=== PATIENT | female | born 1990 | race Caucasian/White ===

== ENCOUNTER 2021-08-10 15:17 | Outpatient (CLI) | payer MEDICAID, SELFPAY ==
[2021-08-10 15:35] VITALS: BP 122/86; PULSE 106; RESP 16; TEMP 36.9; O2SAT 99; BMI 25.3
[2021-08-10] MEDS: 0.9% Saline Lock 10 ML Syringe IV (15:40)
[2021-08-10 16:23] VITALS: BP 115/57; PULSE 86; RESP 16; TEMP 37.1; O2SAT 100
[2021-08-10 17:16] VITALS: BP 113/76; PULSE 79; RESP 16; TEMP 37; O2SAT 99
== END 2021-08-10 17:32 | disposition home or self-care (01) ==
LOC: MS3OUT 15:19 → MS3 15:20
PROVIDERS: Referring Provider Nurse Practitioner Adult Health; Visit Provider Nurse Practitioner Adult Health
DX: Z23 Encounter for immunization (principal); U07.1 COVID-19
CPT/HCPCS: J7050; M0245; Q0245; A4216

== ENCOUNTER 2022-09-17 11:17 | Emergency (ER) | payer OTHER, MEDICAID, SELFPAY ==
[2022-09-17 11:17] VITALS: BP 121/75; PULSE 96; RESP 18; TEMP 35.6; O2SAT 100; BMI 25.8
--- NOTE | 2022-09-17 11:27 | US_ITS ---
We are attempting to reach an attending provider to discuss findings. An addendum with communication details will be sent when the communication is complete. STUDY: FIRST TRIMESTER OBSTETRICAL ULTRASOUND REASON FOR EXAM: Female, 31 years old Left adnexal pain, 5 to 6 weeks gestation by dates- HCG 626 LMP: 08/13/2022 TECHNIQUE: Transvaginal TECHNICAL QUALITY: Adequate. PRIOR ULTRASOUND: None. FINDINGS: There is no demonstrated intrauterine gestational sac.. . The uterus measures 6.0 x 5.4 x 3.3. There is no demonstrated uterine fibroid. The cervix is closed. The uterus is retroflexed. The right ovary measures 2.3 x 2.0 x 2.5 cm. There is no right ovarian cyst. There is no visualized right adnexal mass or complex lesion. The left ovary measures 4.4 x 2.5 x 2.0 cm. There is no left ovarian cyst. There is no visualized left adnexal mass or complex lesion. There is a moderate amount of fluid in the cul de sac. US/Transvaginal w/Preg US IMPRESSION: Normal transvaginal pelvic ultrasound without an intrauterine gestational sac. Differential diagnosis includes an early intrauterine , early ectopic , or missed . Correlation with serial beta Hg measurements is recommended. Moderate amount of free fluid. Electronically Signed: Johan Orozco MD at 13:17 EST ,
--- NOTE | 2022-09-17 11:46 | EDS_ITS ---
HPI History of Present Illness Chief Complaint: Other, Pain/Inj Detail of Chief Complaint: Left inguinal/adnexal pain Informant: patient Onset/Context/Timing Onset: Days (Onset Sunday. Has gotten worse over the past 12 hours.) Context: Sudden Onset Timing: Continuous Quality: Pain Location: Left adnexa Current Severity: Mild Maximum Severity: Moderate Worsened by: Walking, movement Relieved by: Nothing Associated Symptoms Associated Symptoms: Nausea, increased urination and HPI narrative Narrative Narrative: Patient is a 31-year-old female who spoke with Dr. Maxine Duarte and recommended presentation to the emergency room to evaluate her left adnexal pain since she is approximately 6 weeks gestation. Patient states she has O+ blood. She does have history of HSV. She denies any other STI. She denies history of salpingitis. She denies history of endometriosis. She does have a remote history of ovarian cyst at the age of 19. She denies fever, chills night sweats. She denies orthostatic symptoms. Denies vomiting or diarrhea. She denies dysuria, hematuria or urgency. She denies vaginal bleeding or spotting. She denies vaginal discharge. She is scheduled to see vacuum tank tender first part of October. This is her first . Prior similar symptoms: No Recent Illness/Hospitalization: No PFSH PFSH Medical History (Updated 09/17/22 @ 14:[address] Lars Tarango MD) HSV (herpes simplex virus) anogenital infection Low iron Home Medications NK 08/10/21 [History Last Taken Unknown] Allergy/AdvReac Type Severity Reaction Status Date / Time hydrocodone Allergy Severe Itching Verified 09/17/22 11:20 pneumococcal vaccine AdvReac Severe Swelling Verified 09/17/22 11:20 [From Pneumovax-23] Family History no significant family his Surgical History no surgical history no surgical history Social History (Updated 09/17/22 @ 11:[address] Lars Tarango MD) household members: spouse Smoking Status: Never smoker substance use type: does not use ROS ROS ED Constitutional Constitutional ED: Denies chills, fever(s), subjective, sweats or weight loss Cardiovascular Cardiovascular: Reports other Details: Denies orthostatic pain or left trapezius pain ; Denies chest pain, palpitations or racing heartbeat Respiratory/Chest Respiratory/Chest: Denies cough, dyspnea or dyspnea on exertion Gastrointestinal Gastrointestinal: Reports abdominal pain and nausea; Denies diarrhea, melena or vomiting Genitourinary Genitourinary ED: Reports urinary frequency and other Details: Patient attributes the frequency due to the fact that she is increase fluid intake after she became aware that she was . ; Denies dysuria or hematuria Musculoskeletal Musculoskeletal: Denies arthralgias, back pain, myalgias or neck pain Neurologic Neurologic: Denies paresthesias or weakness Hematologic/Lymphatic Hematologic/Lymphatic: Reports systems reviewed and no addt'l complaints, except as documented EXAM Physical Exam Const Vital Signs: 09/17/22 11:17 09/17/22 11:38 Temperature 96.0 F L Temperature Source Temporal Pulse Rate 96 Respiratory Rate 18 Respiratory Effort Normal Respiratory Pattern Normal Blood Pressure 121/75 H Blood Pressure Mean 90 Pulse Ox 100 Oxygen Delivery Method Room Air Positive well nourished and well developed General Appearance ED: well developed and NAD; Negative for cyanotic, diaphoretic or pallor HEENT Reports moist mucous membranes HEENT Narrative: Head is atraumatic normocephalic. Ears normal. Nares patent. Eyes PERRL and EOMs intact bilaterally General Eye ED: Negative for pale conjunctiva or scleral icterus Neck supple and no JVD Resp normal respiratory effort and clear to auscultation bilaterally Cardio regular rate, regular rhythm, S1 normal heart sound, S2 normal heart sound and no murmurs GI normal to inspection, nondistended, normoactive bowel sounds and no masses; Negative for non-tender, non-distended or hepatosplenomegaly GI Narrative: There is slight tympany to percussion. Patient does have pain in the left inguinal area. There is no evidence of inguinal lymphadenopathy or hernia. Palpation: soft; Negative for guarding, splenomegaly, mass or rebound tenderness present Back/Spine no CVA tenderness Thoracic Spine / Upper Back: Negative for thoracic spinal tenderness Lumbar Spine / Lower Back: Negative for lumbar spinal tenderness Extremity normal to inspection Extremity Narrative: There is no asymmetry, swelling, discoloration, leg vein distention, palpable cords or tenderness along the distribution of the deep venous system. Neuro oriented x3, CN's II-XII intact bilaterally and no sensory deficits noted Sensorium / Orientation: alert Psych mental status grossly normal Skin no rashes or lesions noted, no wounds and skin turgor normal General Skin Exam: elasticity normal; Negative for jaundice or pallor MDM MDM MDM Narrative Medical decision making narrative: Frontal diagnosis would include ruptured ovarian cyst, doubt torsion. Need to evaluate for ectopic . Since patient is in her first trimester broad ligament pain is not likely. Rh was not obtained since patient does know her blood type, O+. Once the results of the ultrasound are known and the hCG quantitative level will contact Dr. Maxine Duarte who instructed patient to come in for evaluation. Lab Data Attestation: I reviewed the patient's lab results. Lab results narrative: Quantitative hCG is 626. There may not be evidence of an intrauterine on ultrasound. Labs: Laboratory Results - last 24 hr 09/17/22 11:30 HCG, Quant 626 H Radiography Diagnostic Testing: Clinical Impression(s) from Imaging Studies Obstetrics Ultrasound 09/17/22 11:27 IMPRESSION: Normal transvaginal pelvic ultrasound without an intrauterine gestational sac. Differential diagnosis includes an early intrauterine , early ectopic , or missed . Correlation with serial beta Hg measurements is recommended. Moderate amount of free fluid. Electronically Signed: Johan Orozco MD at 13:17 EST Reading Location ID and State: [employer] / [employer] Tel , Service support , ADDENDUM: 09/17/22 1328 IMPRESSION: Normal transvaginal pelvic ultrasound without an intrauterine gestational sac. Differential diagnosis includes an early intrauterine , early ectopic , or missed . Correlation with serial beta Hg measurements is recommended. Moderate amount of free fluid. N.B. : The above Results were Read Back by Johan Orozco MD to Sukhdeep Sousa MD, and understanding confirmed on 09/17/2022 13:21:33 (ET). Electronically Signed: Johan Orozco MD at 13:17 EST Reading Location ID and State: [id number] / [employer] Tel , Service support , CaseNo intrauterine was noted. Simple fluid on the cul-de-sac. Did not have consistency of blood. Suspect was not noted since she is early and quant is only 626. There is no evidence of cyst. Will discuss case with Dr. Maxine Duarte on-call. Will recommend hCG in 48 hours and follow-up since patient is hemodynamically stable and there is no visible evidence of ectopic . As discussed Dr. Maxine Duarte. She agrees with treatment plan. Patient's been made aware. Discharge Plan Triage Chief Complaint: Other, Pain/Inj ED Provider: Lars Tarango Dx/Rx/DC Orders Clinical Impression: Adnexal pain, First trimester , Free fluid in pelvis Instructions: ED Abdominal Pain, Early Prescriptions: No Action NK Primary Care Provider: Care Physician,No Primary Referrals: Maxine Mosquera, [Med Staff - Active Staff] - 3-5 Days Care Physician,No Primary [Primary Care Provider] - Activity Restrictions/Additional Instructions: Return if you are lightheaded, appear pale, left shoulder pain, severe pelvic pain or vaginal bleeding greater than 1 pad per hour x4 hours Disposition Disposition: Home, Self Care
[2022-09-17 12:01] LABS: hCG Titer Quant., Serum 626 mIU/mL (1-3)
[2022-09-17 14:37] VITALS: BP 109/69; PULSE 74; RESP 14; O2SAT 98
== END 2022-09-17 14:43 | disposition home or self-care (01) ==
PROVIDERS: Emergency Provider Emergency Medicine; Visit Provider Emergency Medicine
DX: O26.891 Other specified pregnancy related conditions, first trimester (principal); O99.891 Other specified diseases and conditions complicating pregnancy; R10.2 Pelvic and perineal pain; O98.511 Other viral diseases complicating pregnancy, first trimester; B00.9 Herpesviral infection, unspecified; R35.0 Frequency of micturition; Z3A.01 Less than 8 weeks gestation of pregnancy
CPT/HCPCS: 76817; 84702; 99283; A4216

== ENCOUNTER → 2022-09-19 | Outpatient (CLI) | payer OTHER, SELFPAY ==
[2022-09-19 12:47] LABS: hCG Titer Quant., Serum 1068 mIU/mL (1-3)
== END | disposition home or self-care (01) ==
PROVIDERS: Visit Provider Obstetrics & Gynecology
DX: Z34.90 Encounter for supervision of normal pregnancy, unspecified, unspecified trimester (principal)
CPT/HCPCS: 36415; 84702

== ENCOUNTER → 2022-09-27 | Outpatient (CLI) | payer OTHER, SELFPAY ==
--- NOTE | 2022-09-27 12:29 | US_ITS ---
STUDY: FIRST TRIMESTER OBSTETRICAL ULTRASOUND REASON FOR EXAM: Female, 31 years old well being LMP: 08/13/2022. TECHNIQUE: Transvaginal TECHNICAL QUALITY: Adequate. PRIOR ULTRASOUND: Comparison is made with prior examination dated 09/17/2022. FINDINGS: There is visualization of a single gestational sac in a normal intrauterine position. The mean sac diameter (MSD) measures 1.01 cm, indicating an estimated gestational age (EGA) of 5 weeks, 5 days. There is no demonstrated yolk sac. The placenta is non-visualized. There is visualization of a live embryo. The crown-rump length (CRL) measures 2.1 cm, indicating an estimated gestational age (EGA) of 6 weeks, 0 days. There is demonstrated cardiac activity with a heart rate of 105 bpm. The estimated gestation age (EGA) by LMP is 6 weeks, 3 days. The estimated date of delivery (JACKSON) by LMP is 05/20/2023. The estimated gestation age (EGA) by US is 5 weeks, 6 days. The estimated date of delivery (JACKSON) by US is 05/24/2023. The uterus measures 6.6 cm x 5.2 cm x 3.8 cm. There is no demonstrated uterine fibroid. The cervix is closed. The right ovary measures 2.5 cm x 2 cm x 2 cm. There is no right ovarian cyst. There is no visualized right adnexal mass or complex lesion. The left ovary measures 2.9 cm x 2.9 cm x 1.4 cm. There is no left ovarian cyst. There is no visualized left adnexal mass or complex lesion. There is no fluid in the cul de sac. US/Transvaginal w/Preg US IMPRESSION: Single live intrauterine gestation with a mean gestational age of 5 weeks and 6 days. Electronically Signed: Arnaldo Ndiaye MD at 14:33 EST ,
== END | disposition home or self-care (01) ==
LOC: OPUS 12:27
PROVIDERS: Referring Provider Obstetrics & Gynecology; Visit Provider Obstetrics & Gynecology
DX: Z34.91 Encounter for supervision of normal pregnancy, unspecified, first trimester (principal); Z3A.01 Less than 8 weeks gestation of pregnancy
CPT/HCPCS: 76817

== ENCOUNTER → 2022-10-16 | Outpatient (CLI) | payer OTHER, SELFPAY ==
[2022-10-16 10:35] LABS: Absolute Lymphocyte Count 1.64 X10^3/uL (0.83-4.51); Absolute Neutrophil Count 6.3 X10^3/uL (2.0-7.7); Basophil# 0.04 X10^3/uL; Basophil% 0.4 % (0-1); Eosinophil# 0.07 X10^3/uL; Eosinophils% 0.8 % (0-5); Hematocrit 35.8 % (37-47); Hemoglobin 11.5 g/dL (12.0-15.0); Lymphocyte # 1.64 X10^3/ul (0.83-4.51); Lymphocyte % 18.4 % (19-41); Mean Corp Hgb Conc 32.1 g/dL (32-36); Mean Corpuscular Hgb 20.1 pg (27.0-32.0); Mean Corpuscular Volume 62.6 fL (81-99); Mean Platelet Vol. 9.3 fl (6.2-12.0); Monocyte# 0.77 X10^3/uL; Monocyte% 8.6 % (0-10); NRBC Flagged by Analyzer 0 % (0-5); Neutrophil # 6.32 X10^3/uL (2.7-7.7); Platelet Count 278 K/mm3 (150-450); RBC Distribution Width CV 18.4 % (11.6-14.6); RBC Distribution Width SD 37.5 fl (35.1-43.9); Red Blood Count 5.72 M/mm3 (4.2-5.4); White Blood Count 8.9 K/mm3 (4.4-11.0)
[2022-10-16 11:50] LABS: HIV - WCH Non-Reactive (Nonreactive); Hepatitis B Surface Antigen Non-Reactive (Nonreactive); Hepatitis C Antibody Non-Reactive (Nonreactive); Rubella IgG Reactive (Nonreactive); Syphilis Antibodies Non-reactive
[2022-10-18 08:10] LABS: Chlamydia By Nucleic Acid AMP Negative (Negative)
[2022-10-20 18:59] LABS: Gonococcus By Nucleic Acid AMP Negative (Negative)
== END | disposition home or self-care (01) ==
PROVIDERS: Referring Provider Obstetrics & Gynecology; Visit Provider Obstetrics & Gynecology
DX: Z34.90 Encounter for supervision of normal pregnancy, unspecified, unspecified trimester (principal)
CPT/HCPCS: 36415; 85025; 86703; 86762; 86780; 86803; 86850; 86900; 86901; 87086; 87340; 87491; 87591

== ENCOUNTER → 2022-10-23 | Outpatient (CLI) | payer OTHER, SELFPAY ==
[2022-10-30 16:08] LABS: Protein S, Free 73 % (61-136)
[2022-10-30 21:02] LABS: Antithrombin 3 Function 99 % (75-135); Protein C, Functional 101 % (73-180); Protein S, Funtional 46 % (63-140); Protein S, Total 71 % (60-150)
== END | disposition home or self-care (01) ==
PROVIDERS: Visit Provider Obstetrics & Gynecology
DX: Z34.90 Encounter for supervision of normal pregnancy, unspecified, unspecified trimester (principal); D56.3 Thalassemia minor
CPT/HCPCS: 81240; 81241; 85300; 85303; 85305; 85306

== ENCOUNTER → 2022-10-30 | Outpatient (CLI) | payer OTHER, SELFPAY ==
[2022-10-30 12:21] LABS: Ferritin 57 ng/mL (8-252); Iron 104 ug/dL (50-170); Iron Binding Capacity,Total 360 ug/dL (250-450); PERCENT IRON SATURATION 28.9 % (15.0-55.0)
[2022-10-30 12:58] LABS: NATERA MAILED SPECIMEN
== END | disposition home or self-care (01) ==
LOC: PAVLAB 11:50
PROVIDERS: Referring Provider Obstetrics & Gynecology; Visit Provider Obstetrics & Gynecology
DX: O99.013 Anemia complicating pregnancy, third trimester (principal); Z31.430 Encounter of female for testing for genetic disease carrier status for procreative management
CPT/HCPCS: 36415; 82728; 83540; 83550

== ENCOUNTER → 2022-11-30 | Outpatient (CLI) | payer OTHER, SELFPAY | END | disposition home or self-care (01) | LOC: LABSPEC 13:04 | PROVIDERS: Referring Provider Registered Nurse; Visit Provider Registered Nurse | DX: R30.0 Dysuria (principal) | CPT/HCPCS: 87086 ==

== ENCOUNTER → 2022-12-06 | Outpatient (CLI) | payer OTHER, SELFPAY | END | disposition home or self-care (01) | LOC: LABSPEC 15:01 | PROVIDERS: Referring Provider Nurse Practitioner Women's Health; Visit Provider Nurse Practitioner Women's Health | DX: N89.8 Other specified noninflammatory disorders of vagina (principal) | CPT/HCPCS: 87070; 87205 ==

== ENCOUNTER → 2023-02-16 | Outpatient (CLI) | payer OTHER, SELFPAY | END | disposition home or self-care (01) | LOC: LABSPEC 09:57 | PROVIDERS: Referring Provider Advanced Practice Midwife; Visit Provider Advanced Practice Midwife | DX: O26.899 Other specified pregnancy related conditions, unspecified trimester (principal); N89.8 Other specified noninflammatory disorders of vagina; O23.40 Unspecified infection of urinary tract in pregnancy, unspecified trimester; Z3A.00 Weeks of gestation of pregnancy not specified; O99.891 Other specified diseases and conditions complicating pregnancy | CPT/HCPCS: 87070; 87086; 87205 ==

== ENCOUNTER → 2023-02-26 | Outpatient (CLI) | payer OTHER, SELFPAY ==
[2023-02-26 11:32] LABS: Absolute Lymphocyte Count 1.54 X10^3/uL (0.83-4.51); Absolute Neutrophil Count 9.9 X10^3/uL (2.0-7.7); Basophil# 0.05 X10^3/uL; Basophil% 0.4 % (0-1); Eosinophil# 0.11 X10^3/uL; Eosinophils% 0.9 % (0-5); Hematocrit 30.8 % (37-47); Hemoglobin 9.7 g/dL (12.0-15.0); Lymphocyte # 1.54 X10^3/ul (0.83-4.51); Lymphocyte % 12.2 % (19-41); Mean Corp Hgb Conc 31.5 g/dL (32-36); Mean Corpuscular Hgb 20.7 pg (27.0-32.0); Mean Corpuscular Volume 65.7 fL (81-99); Mean Platelet Vol. 9.7 fl (6.2-12.0); Monocyte# 0.76 X10^3/uL; NRBC Flagged by Analyzer 0 % (0-5); Neutrophil # 9.89 X10^3/uL (2.7-7.7); Neutrophil % 78.6 % (47-70); Platelet Count 267 K/mm3 (150-450); RBC Distribution Width CV 16.9 % (11.6-14.6); RBC Distribution Width SD 37.2 fl (35.1-43.9); Red Blood Count 4.69 M/mm3 (4.2-5.4); White Blood Count 12.6 K/mm3 (4.4-11.0)
[2023-02-26 11:40] LABS: Glucose Challenge Gest 1H 50g 84 mg/dL (70-140)
[2023-02-26 12:46] LABS: HIV - WCH Non-Reactive (Nonreactive); Syphilis Antibodies Non-reactive
[2023-02-28 15:17] LABS: Ferritin 12 ng/mL (8-252); Iron 58 ug/dL (50-170); Iron Binding Capacity,Total 479 ug/dL (250-450); PERCENT IRON SATURATION 12.1 % (15.0-55.0)
== END | disposition home or self-care (01) ==
LOC: PAVLAB 11:16
PROVIDERS: Registered Nurse; Referring Provider Advanced Practice Midwife; Visit Provider Advanced Practice Midwife
DX: O99.013 Anemia complicating pregnancy, third trimester (principal); Z3A.00 Weeks of gestation of pregnancy not specified
CPT/HCPCS: 36415; 82728; 82950; 83540; 83550; 85025; 86703; 86780

== ENCOUNTER 2023-03-23 18:12 | Outpatient (CLI) | payer OTHER, MEDICAID, SELFPAY ==
[2023-03-23 18:30] VITALS: BMI 29.2
[2023-03-23 18:33] VITALS: O2SAT 84
[2023-03-23 18:36] VITALS: BP 111/57; PULSE 98; TEMP 36.6
--- NOTE | 2023-03-23 22:38 | OB.TRI.HP_ITS ---
HPI - General General Date of Admission: 03/23/23 HPI Narrative DARCY ALEJO, is a 32 y/p @ 31 weeks 5 days who presents to labor and delivery with decreased movement Maternal Data Information JACKSON Calculator Estimated Delivery Date Method Current WG Current Estimate 05/20/23 LMP (Certain) 31w 6d Other Estimates 05/21/23 Ultrasound #1 31w 5d PFSH PFSH Medical History HSV (herpes simplex virus) anogenital infection Hx of abnormal cervical Pap smear Low iron Testing for genetic disease carrier status Home Medications PNV 153-FA 400 mcg-om3 35 mg-dha 25 mg-epa 5 mg-fish oil chew tablet 1 tab PO DAILY 10/09/22 [History Last Taken 03/23/23] valacyclovir 1 gram tablet (Valtrex) 1,000 mg PO DAILY PRN HSV 10/09/22 [History Last Taken Unknown] ferrous gluconate 236 mg (27 mg iron) tablet 236 mg PO DAILY #90 tabs 03/07/23 [Rx Last Taken 03/23/23] Allergy/AdvReac Type Severity Reaction Status Date / Time hydrocodone Allergy Severe Itching Verified 03/23/23 18:46 pneumococcal vaccine AdvReac Severe Swelling Verified 03/23/23 18:46 [From Pneumovax-] Family History Mother Thalassemia carrier Stillborn, normal 2 one at 6 months and one at 8 months Father Beta thalassemia minor Surgical History History of tonsillectomy Hx of LASIK [place] teeth extracted Social History adopted: No household members: spouse current occupational status: employed current occupation: [employer] pets and animals: Yes (not managing litterbox) pets and animals: cat(s), dog(s) and fish history of recent travel: Yes ([place]) out of state: Yes sexually active: Yes Smoking Status: Never smoker alcohol intake: current alcohol intake frequency: a few times a month details: Not while substance use type: does not use well-balanced diet: daily or most days caffeine: No eating out: 1-3 times/week during the past year weight has: remained stable what type of physical activity do you participate in: none gill/lutheran: Moravian seatbelt use: always do you feel safe at home: Yes additional social history: Emily JAFFE History 1 Elective abortions Hx Para 0 Spontaneous abortions Hx # Term Pregnancies Ectopic pregnancies Hx # Pregnancies Multiple births # of living children Visit Details Expected Delivery Route/Plan Labor Preferences- CB/BF classes: enc labor support person: [] labor intervention preferences: no mirrors, pain management options preferred: EPIDURAL! cut cord/dad catch: considering : [] PP control planned: OCPs discussed possible routes of delivery and associated risks: [] special requests: [] Plans Covid status: discussed Flu vaccine: discussed Tdap vaccine: obtained Rhogam: [] LARC form signed: obtained Problem list reviewed and updated with the most current plan of care details and appropriate orders placed. Relevant counseling for the gestational age provided. Continue routine care and follow up unless otherwise noted in visit notes/problem list details OB Flowsheet Initial Weight: Not Recorded Date -?-?-?-?-?-?-?-?-?-?-?-?- EGA Weight BP Urine Prot -?-?-?-?-?-?-?-?-?-?-?-?- Glucose FHR FuHt Pres Dilation -?-?-?-?-?-?-?-?-?-?-?-?- Effaced St Visit Note 10/16/22 -?-?-?-?-?-?-?-?-?-?-?-?- 9w 1d 157 lb 8 oz 119/78 -?-?-?-?-?-?-?-?-?-?-?-?- 168 -?-?-?-?-?-?-?-?-?-?-?-?- SM- CRL 2 cm con s with LMP possible GS no yolk sac or pole measuring significantly smaller than primary sac. possible vanishing twin 10/30/22 -?-?-?-?-?-?-?-?-?-?-?-?- 11w 1d 156 lb 4 oz 114/75 Nega tive -?-?-?-?-?-?-?-?-?-?-?-?- Negative 160 -?-?-?-?-?-?-?-?-?-?-?-?- SM- ordered [facility] ier screening for both 11/27/22 -?-?-?-?-?-?-?-?-?-?-?-?- 15w 1d 155 lb 4 oz 95/56 Nega tive -?-?-?-?-?-?-?-?-?-?-?-?- Negative 164 -?-?-?-?-?-?-?-?-?-?-?-?- MH-No VB or cram ping. MFM US sent. Rory's genetics still pending 12/06/22 -?-?-?-?-?-?-?-?-?-?-?-?- 16w 3d 154 lb 8 oz 121/66 Nega tive -?-?-?-?-?-?-?-?-?-?-?-?- Negative 164 -?-?-?-?-?-?-?-?-?-?-?-?- -Work in with vaginal burning. Neg urine culture but did take macrobid. Vag Cultures collected. No VB 12/25/22 -?-?-?-?-?-?-?-?-?-?-?-?- 19w 1d 157 lb 2 oz 101/64 Nega tive -?-?-?-?-?-?-?-?-?-?-?-?- Negative 155 -?-?-?-?-?-?-?-?-?-?-?-?- Sm- no vb lof cr amping 01/31/23 -?-?-?-?-?-?-?-?-?-?-?-?- 24w 3d 166 lb 8 oz 107/63 Nega tive -?-?-?-?-?-?-?-?-?-?-?-?- Negative 135 24 -?-?-?-?-?-?-?-?-?-?-?-?- KW-+ FM, no lof/ vb/ctx. No concerns. discussed 28 week labs 02/16/23 -?-?-?-?-?-?-?-?-?-?-?-?- 26w 5d 171 lb 6 oz 109/68 -?-?-?-?-?-?-?-?-?-?-?-?- 140 27 -?-?-?-?-?-?-?-?-?-?-?-?- KW-work in for v aginal discharge. increased D/C about 1 week, has to wear panty liner. no urinary sx, odor, itching, vaginal pressure. culture sent.+fm. KW-work in for vaginal disch arge. increased D/C about 1 week, has to wear panty liner. no urinary sx, odor, itching, vaginal pressure. culture sent.+fm. no vb/cramping 02/26/23 -?-?-?-?-?-?-?-?-?-?-?-?- 28w 1d 172 lb 6 oz 101/66 Nega tive -?-?-?-?-?-?-?-?-?-?-?-?- Negative 138 28 -?-?-?-?-?-?-?-?-?-?-?-?- LC-no ctx/lof/vb . good fm. 28 week labs normal. CBe and pedi reviewed. [facility] signed and tdap obtained LC-no ctx/lof/vb. good fm. 2 8 week labs normal. CBe and pedi reviewed. [facility] signed and tdap obtained. iron studies and heme consult ordered for beta thalassemia minor with decreasing H&H 03/14/23 -?-?-?-?-?-?-?-?-?-?-?-?- 30w 3d 176 lb 117/77 -?--?-?-?-?-?-?-?-?-?-?-?- 130 31 -?-?-?-?-?-?-?-?-?-?-?-?- KW-+FM, no lof/v b/ctx. Patient had appt with Hem, she has additional concerns with wellbeing-MFM consult. Plan for CBC in 4 weeks and follow up with Hematology in 8 weeks. KW-+FM, no lof/vb/ctx. Patie nt had appt with Hem, she has additional concerns with wellbeing-MFM consult. Plan for CBC/CMP in 4 weeks and follow up with Hematology in 8 weeks. ROS Constitutional Constitutional: Reports systems reviewed and no addt'l complaints, except as documented Gastrointestinal Gastrointestinal: Denies bloating, constipation, cramping, diarrhea, nausea or vomiting Genitourinary Genitourinary: Reports other Details: Denies vaginal odor, vaginal bleeding, or vaginal discharge ; Denies difficulty urinating or flank pain NST FHR Rate Baby A Baseline: 130 Variability:: Moderate Accelerations:: 15 x 15 Decelerations:: None NST Reactive:: Yes FHR Category:: Category I Assessment & Plan (1) Decreased movement affecting management of mother, antepartum: COMMENT: nst reactive in triage 03/24/23 PLAN: plan to dc to home with kick counts keep next scheduled appt Charges/Coding Multi Select Codes Urinary/Genital Urinary/Genital CPT Codes: 79378-14 non-stress test Interp
== END 2023-03-23 19:05 | disposition home or self-care (01) ==
LOC: WPOUT 18:26 → WP 18:26
PROVIDERS: Referring Provider Obstetrics & Gynecology; Visit Provider Obstetrics & Gynecology
DX: O36.8130 Decreased fetal movements, third trimester, not applicable or unspecified (principal); Z3A.31 31 weeks gestation of pregnancy
CPT/HCPCS: 59025; 59050; 99221; G0378

== ENCOUNTER → 2023-04-09 | Outpatient (CLI) | payer OTHER, MEDICAID, SELFPAY ==
[2023-04-09 12:01] LABS: Absolute Lymphocyte Count 1.79 X10^3/uL (0.83-4.51); Absolute Neutrophil Count 11.2 X10^3/uL (2.0-7.7); Basophil# 0.07 X10^3/uL; Basophil% 0.5 % (0-1); Eosinophil# 0.11 X10^3/uL; Eosinophils% 0.8 % (0-5); Hematocrit 32.6 % (37-47); Hemoglobin 10.1 g/dL (12.0-15.0); Lymphocyte # 1.79 X10^3/ul (0.83-4.51); Lymphocyte % 12.5 % (19-41); Mean Corpuscular Hgb 20.4 pg (27.0-32.0); Mean Platelet Vol. 10.3 fl (6.2-12.0); Monocyte# 0.72 X10^3/uL; NRBC Flagged by Analyzer 0 % (0-5); Platelet Count 305 K/mm3 (150-450); RBC Distribution Width CV 16.2 % (11.6-14.6); RBC Distribution Width SD 35.8 fl (35.1-43.9); Red Blood Count 4.94 M/mm3 (4.2-5.4); White Blood Count 14.4 K/mm3 (4.4-11.0)
[2023-04-09 12:44] LABS: ALB/GLOB Ratio 0.7 RATIO (0.9-2.4); AST(SGOT) 20 U/L (15-37); Alanine Aminotransfer ALT/SGPT 24 U/L (13-56); Albumin, Serum 2.6 g/dL (3.2-5.0); Alkaline Phosphatase 193 U/L (45-117); Anion Gap 5 (5-15); BUN 5 mg/dL (7-18); BUN/Creat Ratio 8.8 RATIO (10-20); Calcium,Total 8.8 mg/dL (8.5-10.1); Chloride 110 mmol/L (98-107); Creatinine, Serum 0.57 mg/dL (0.55-1.02); EST Glomerular Filtration Rate 132 mL/min (>60); Est Glom Filt Rate - Afr Amer 160 mL/min (>60); Globulin 3.7 g/dL (2.2-4.2); Glucose 112 mg/dL (74-106); Potassium 3.5 mmol/L (3.5-5.1); Protein, Total 6.3 g/dL (6.4-8.2); Sodium Level 138 mmol/L (136-145)
== END | disposition home or self-care (01) ==
LOC: PAVLAB 11:38
PROVIDERS: Referring Provider Advanced Practice Midwife; Visit Provider Advanced Practice Midwife
DX: O99.013 Anemia complicating pregnancy, third trimester (principal); E61.1 Iron deficiency; D56.3 Thalassemia minor; O99.280 Endocrine, nutritional and metabolic diseases complicating pregnancy, unspecified trimester; Z3A.00 Weeks of gestation of pregnancy not specified
CPT/HCPCS: 36415; 80053; 85025

== ENCOUNTER → 2023-04-23 | Outpatient (CLI) | payer OTHER, MEDICAID, SELFPAY | END | disposition home or self-care (01) | LOC: LABSPEC 13:47 | PROVIDERS: Referring Provider Obstetrics & Gynecology; Visit Provider Obstetrics & Gynecology | DX: O09.90 Supervision of high risk pregnancy, unspecified, unspecified trimester (principal); Z3A.00 Weeks of gestation of pregnancy not specified | CPT/HCPCS: 87081 ==

== ENCOUNTER 2023-05-15 16:45 | Inpatient (IN) | payer OTHER, MEDICAID, SELFPAY ==
[2023-05-15] VITALS (23 sets, daily range): BP systolic 110–155; BP diastolic 56–78; PULSE 84–105; TEMP 36.1–36.7; O2SAT 100; BMI 32.5
[2023-05-15 17:48] LABS: ROM Internal Control Test YES-OK TO RESULT pt. (Internal QC)
[2023-05-15 17:50] LABS: ROM Patient Test POSITIVE (Negative); Record Kit Lot#, ROM+ K1409
[2023-05-15 18:40] LABS: Absolute Lymphocyte Count 1.71 X10^3/uL (0.83-4.51); Absolute Neutrophil Count 12.1 X10^3/uL (2.0-7.7); Basophil# 0.06 X10^3/uL; Basophil% 0.4 % (0-1); Eosinophil# 0.11 X10^3/uL; Eosinophils% 0.7 % (0-5); Hematocrit 33.9 % (37-47); Hemoglobin 10.3 g/dL (12.0-15.0); Lymphocyte # 1.71 X10^3/ul (0.83-4.51); Mean Corp Hgb Conc 30.4 g/dL (32-36); Mean Corpuscular Hgb 19.8 pg (27.0-32.0); Mean Corpuscular Volume 65.2 fL (81-99); Mean Platelet Vol. 9.8 fl (6.2-12.0); Monocyte# 1.16 X10^3/uL; Monocyte% 7.5 % (0-10); NRBC Flagged by Analyzer 0 % (0-5); Neutrophil # 12.13 X10^3/uL (2.7-7.7); Neutrophil % 78.3 % (47-70); Platelet Count 267 K/mm3 (150-450); RBC Distribution Width CV 18.9 % (11.6-14.6); RBC Distribution Width SD 39.9 fl (35.1-43.9); White Blood Count 15.5 K/mm3 (4.4-11.0)
[2023-05-15] MEDS: Lactated Ringers 1,000 ML 200 ML IV (18:40)
[2023-05-15] MEDS: LACTATED RINGERS 500 ML 999 ML IV ×2 (18:40→20:32)
--- NOTE | 2023-05-15 18:48 | HP.PCM.OB_ITS ---
HPI - General General Date of Admission: 05/15/23 Date of Service: 05/15/23 HPI Narrative DARCY ALEJO, is a 32 F at 39.2 weeks who presents with SROM at 1602 today for clear fluid Maternal Data Information JACKSON Calculator Estimated Delivery Date Method Current WG Current Estimate 05/20/23 LMP (Certain) 39w 2d Other Estimates 05/21/23 Ultrasound #1 39w 1d Final JACKSON: 05/20/23 Final JACKSON Source: US >20 weeks Gestational age: 39.2 weeks PFSH PFSH Medical History HSV (herpes simplex virus) anogenital infection Hx of abnormal cervical Pap smear Low iron Testing for genetic disease carrier status Home Medications PNV 153-FA 400 mcg-om3 35 mg-dha 25 mg-epa 5 mg-fish oil chew tablet 1 tab PO DAILY 10/09/22 [History Last Taken 03/23/23] valacyclovir 1 gram tablet (Valtrex) 1,000 mg PO DAILY PRN HSV 10/09/22 [History Last Taken Unknown] Allergy/AdvReac Type Severity Reaction Status Date / Time hydrocodone Allergy Severe Itching Verified 05/15/23 17:11 pneumococcal vaccine AdvReac Severe Swelling Verified 05/15/23 17:11 [From Pneumovax-] Family History Mother Thalassemia carrier Stillborn, normal 2 one at 6 months and one at 8 months Father Beta thalassemia minor Surgical History History of tonsillectomy Hx of LASIK [place] teeth extracted Social History adopted: No household members: spouse current occupational status: employed current occupation: [employer] pets and animals: Yes (not managing litterbox) pets and animals: cat(s), dog(s) and fish history of recent travel: Yes ([place]) out of state: Yes sexually active: Yes Smoking Status: Never smoker alcohol intake: current alcohol intake frequency: a few times a month details: Not while substance use type: does not use well-balanced diet: daily or most days caffeine: No eating out: 1-3 times/week during the past year weight has: remained stable what type of physical activity do you participate in: none gill/gnosticism: Religion seatbelt use: always do you feel safe at home: Yes additional social history: Emily JAFFE History 1 Elective abortions Hx Para 0 Spontaneous abortions Hx # Term Pregnancies Ectopic pregnancies Hx # Pregnancies Multiple births # of living children Visit Details Expected Delivery Route/Plan Labor Preferences- CB/BF classes: enc labor support person: [] labor intervention preferences: no mirrors, pain management options preferred: EPIDURAL! cut cord/dad catch: considering : [] PP control planned: OCPs discussed possible routes of delivery and associated risks: [] special requests: [] Plans Covid status: discussed Flu vaccine: discussed Tdap vaccine: obtained Rhogam: na LARC form signed: obtained Problem list reviewed and updated with the most current plan of care details and appropriate orders placed. Relevant counseling for the gestational age provided. Continue routine care and follow up unless otherwise noted in visit notes/problem list details OB Flowsheet Initial Weight: Not Recorded Date -?-?-?-?-?-?-?-?-?-?-?-?- EGA Weight BP Urine Prot -?-?-?-?-?-?-?-?-?-?-?-?- Glucose FHR FuHt Pres Dilation -?-?-?-?-?-?-?-?-?-?-?-?- Effaced St Visit Note 10/16/22 -?-?-?-?-?-?-?-?-?-?-?-?- 9w 1d 157 lb 8 oz 119/78 -?-?-?-?-?-?-?-?-?-?-?-?- 168 -?-?-?-?-?-?-?-?-?-?-?-?- SM- CRL 2 cm con s with LMP possible GS no yolk sac or pole measuring significantly smaller than primary sac. possible vanishing twin 10/30/22 -?-?-?-?-?-?-?-?-?-?-?-?- 11w 1d 156 lb 4 oz 114/75 Nega tive -?-?-?-?-?-?-?-?-?-?-?-?- Negative 160 -?-?-?-?-?-?--?-?-?-?-?-?- SM- ordered [facility] ier screening for both 11/27/22 -?-?-?-?-?-?-?-?-?-?-?-?- 15w 1d 155 lb 4 oz 95/56 Nega tive -?-?-?-?-?-?-?-?-?-?-?-?- Negative 164 -?-?-?-?-?-?-?-?-?-?-?-?- -No VB or cram ping. MFM US sent. Rory's genetics still pending 12/06/22 -?-?-?-?-?-?-?-?-?-?-?-?- 16w 3d 154 lb 8 oz 121/66 Nega tive -?-?-?-?-?-?-?-?-?-?-?-?- Negative 164 -?-?-?-?-?-?-?-?-?-?-?-?- -Work in with vaginal burning. Neg urine culture but did take macrobid. Vag Cultures collected. No VB 12/25/22 -?-?-?-?-?-?-?-?-?-?-?-?- 19w 1d 157 lb 2 oz 101/64 Nega tive -?-?-?-?-?-?-?-?-?-?-?-?- Negative 155 -?-?-?-?-?-?-?-?-?-?-?-?- Sm- no vb lof cr amping 01/31/23 -?-?-?-?-?-?-?-?-?-?-?-?- 24w 3d 166 lb 8 oz 107/63 Nega tive -?-?-?--?-?-?-?-?-?-?-?-?- Negative 135 24 -?-?-?-?-?-?-?-?-?-?-?-?- KW-+ FM, no lof/ vb/ctx. No concerns. discussed 28 week labs 02/16/23 -?-?-?-?-?-?-?-?-?-?-?-?- 26w 5d 171 lb 6 oz 109/68 -?-?-?-?-?-?-?-?-?-?-?-?- 140 27 -?-?-?-?-?-?-?-?-?-?-?-?- KW-work in for v aginal discharge. increased D/C about 1 week, has to wear panty liner. no urinary sx, odor, itching, vaginal pressure. culture sent.+fm. KW-work in for vaginal disch arge. increased D/C about 1 week, has to wear panty liner. no urinary sx, odor, itching, vaginal pressure. culture sent.+fm. no vb/cramping 02/26/23 -?-?-?-?-?-?-?-?-?-?-?-?- 28w 1d 172 lb 6 oz 101/66 Nega tive -?-?-?-?-?-?-?-?-?-?--?-?- Negative 138 28 -?-?-?-?-?-?-?-?-?-?-?-?- LC-no ctx/lof/vb . good fm. 28 week labs normal. CBe and pedi reviewed. [facility] signed and tdap obtained LC-no ctx/lof/vb. good fm. 2 8 week labs normal. CBe and pedi reviewed. [facility] signed and tdap obtained. iron studies and heme consult ordered for beta thalassemia minor with decreasing H&H 03/14/23 -?-?-?-?-?-?-?-?-?-?-?-?- 30w 3d 176 lb 117/77 -?-?-?-?-?-?-?-?-?-?-?-?- 130 31 -?-?-?-?-?-?-?-?-?-?-?-?- KW-+FM, no lof/v b/ctx. Patient had appt with Hem, she has additional concerns with wellbeing-MFM consult. Plan for CBC in 4 weeks and follow up with Hematology in 8 weeks. KW-+FM, no lof/vb/ctx. Patie nt had appt with Hem, she has additional concerns with wellbeing-MFM consult. Plan for CBC/CMP in 4 weeks and follow up with Hematology in 8 weeks. 03/28/23 -?-?-?-?-?-?-?-?-?-?-?-?- 32w 3d 179 lb 4 oz 102/69 Nega tive -?-?-?-?-?-?-?-?-?-?-?-?- Negative 132 31 -?-?-?-?-?-?-?-?-?-?-?-?- LC- no lof/vb/ct x. good fm. on 1mg folic acid and iron. 04/11/23 -?-?-?-?-?-?-?-?-?-?-?-?- 34w 3d 185 lb 6 oz 114/72 -?-?-?-?-?-?-?-?-?-?-?-?- 140 34 -?-?-?-?-?-?-?-?-?-?-?-?- JV- mfm recommen ds against the iron that hem onc gave her due to beta thal. adequate growth of baby. 04/23/23 -?-?-?-?-?-?-?-?-?-?-?-?- 36w 1d 191 lb 4 oz 110/72 Nega tive -?-?-?-?-?-?-?-?-?-?-?-?- Negative 140 37 Cephalic 1 .5 -?-?-?-?-?-?-?-?-?-?-?-?- 60 -2 SM- no vb lof good fm nor egualr ctx gbs done 05/01/23 -?-?-?-?-?-?-?-?-?-?-?-?- 37w 2d 199 lb 4 oz 121/74 Nega tive -?-?-?-?-?-?-?-?-?-?-?-?- Negative 149 38 Cephalic 2 -?-?-?-?-?-?-?-?-?-?-?-?- 60 -2 KW- no vb/ lof/regular ctx. good fm. labor precautions. 05/09/23 -?-?-?-?-?-?-?-?-?-?-?-?- 38w 3d 203 lb 2 oz 123/74 Nega tive -?-?-?-?-?-?-?-?-?-?-?-?- Negative 124 38 Cephalic 2 -?-?-?-?-?-?-?-?-?-?-?-?- 80 -2 JV- no lof , vaginal bleeding, or dec fm. wants to be delivered. we discussed labor precautions 05/14/23 -?-?-?-?-?-?-?-?-?-?-?-?- 39w 1d 205 lb 8 oz 124/82 Nega tive -?-?-?-?-?-?-?-?-?-?-?-?- Negative 150 38 Cephalic 3 -?-?-?-?-?-?-?-?-?-?-?--?- 80 -1 KW-no lof/ vb/ctx. good fm. NST FHR Rate Baby A Baseline: 160 Variability:: Moderate Accelerations:: 15 x 15 Decelerations:: Late and Variable FHR Category:: Category II Uterine Activity:: 2-3 minutes ROS Constitutional Constitutional: Denies change in weight, fatigue, fever(s), headache(s), poor appetite or weakness Eyes Eyes: Denies blurry vision, change in vision, floaters, seeing flashes or spots in vision ENT HEENT: Denies dizziness, headache(s), loss taste/smell or sore throat Cardiovascular Cardiovascular: Denies chest pain, dizziness, dyspnea, irregular heart rhythm, lightheadedness, palpitations or rapid heart rate Respiratory/Chest Respiratory/Chest: Denies change in mental status, chest tightness, cough, dyspnea or breast pain Gastrointestinal Gastrointestinal: Denies anorexia, chewing difficulty, constipation, diarrhea or weight changes Genitourinary Genitourinary: Denies difficulty urinating, dysuria, flank pain, genital pain, urinary frequency or urinary urgency Musculoskeletal Musculoskeletal: Denies back pain, difficulty walking, extremity pain, joint pain, muscle cramps or muscle weakness Integumentary Integumentary: Denies lesions or unusual bruising Neurologic Neurologic: Denies abnormal movements, abnormal speech, dizziness, numbness, seizure-like activity, syncope or weakness Psychiatric Psychiatric: Denies behavioral changes, change in appetite, confusion, depression, homicidal ideation, suicidal ideation or suicidal thoughts Endocrine Endocrinology: Denies excessive sweating, polydipsia or polyuria Hematologic/Lymphatic Hematologic/Lymphatic: Denies anemia Allergic/Immunologic Allergic/Immunologic: Denies itchy eyes, lip swelling, throat swelling, tongue swelling or wheezing Vital Signs Vital Signs Vital Signs: 05/15/23 17:59 05/15/23 17:59 05/15/23 17:59 Temperature Temperature Source Temporal Pulse Rate 94 Blood Pressure 117/56 L BP Systolic 117 BP Diastolic 56 05/15/23 17:59 Temperature 98.1 F Temperature Source Pulse Rate Blood Pressure BP Systolic BP Diastolic Weight Weight: 201 lb 4.513 oz Body Mass Index (BMI) 32.5 Physical Exam Const alert, oriented x3 and no apparent distress General Appearance: cooperative Orientation / Consciousness: awake HEENT normocephalic Neck full ROM Lymph Lymphatic: no lymphadenopathy noted Chest inspection of chest normal Resp normal respiratory effort and normal air movement Effort and Inspection: able to speak in complete sentences and symmetric chest movement GI soft to palpation and non-tender Inspection: gravid Palpation: soft; Negative for tender external exam normal Manual OB Exam: presentation cephalic Back/Spine normal to inspection Extremity normal to inspection and full ROM Skin no rashes or lesions noted Psych mental status grossly normal Appearance: grossly normal Speech: normal speech Labs Labs Labs: Blood Type O POSITIVE Antibody Screen NEGATIVE Hct 33.9 % (37-47) L Hgb 10.3 g/dL (12.0-15.0) L Obstetrics US Syphilis Total Ab Non-reactive Rubella IgG Antibody Reactive (Nonreactive) Hep Bs Antigen Non-Reactive (Nonreactive) Chlamydia DNA (CHACHA) Negative (Negative) Neisseria gonorrhoeae DNA (CHACHA) Negative (Negative) HIV 1&2 Antibody Non-Reactive (Nonreactive) Glucose 1 Hr 50 gm 84 mg/dL (70-140) Miscellaneous Test Assessment & Plan (1) Rupture of membranes with clear amniotic fluid: PLAN: Patient presents IAL, plan expectant management for , pitocin/AROM PRN if needed. Pain management: plans epidural. GBS negative. Management of any complications: anemia I have reviewed the [facility] and made any clinically relevant updates. (2) Iron deficiency: COMMENT: Low Iron saturation in . 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 open to blood transfusion in if h&h cont less than 10 and symptomatic. 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 regressed and seen at 9 weeks.MFM anatomy confirmed vanishing twin (8) Supervision of high risk , antepartum: COMMENT: PRR , JACKSON 05/20/23, boy Sebastian Anthony (9) : QUALIFIERS: Weeks of gestation: 39 weeks Qualified Code(s): Z3A.39 - 39 weeks gestation of COMMENT: GBS neg,NT nl, declined NIPT & Carrier testing, nl anatomy & consistent JACKSON (10) Asthma: COMMENT: mild, exercise induced (11) Anxiety: COMMENT: counseling encouraged no meds. Charges/Coding Procedures Urinary/Genital [id number]: No Charge
[2023-05-15 19:11] LABS: Syphilis Antibodies Non-reactive
[2023-05-15] MEDS: fentaNYL-bupivacaine (epidural) 100 ML BAG EPIDURAL (19:42)
--- NOTE | 2023-05-15 21:07 | PN_ITS ---
Progress Note comfortable with epidural current tracing: FHT: 135 Moderate variability reactive, occasional decelerations category II tracing [place]: 2-3 minute Contractions A/P: continue position changes epidural managed by anesthesia start pitocin if needed Dr Duarte aware and on unit for another patient, reviewed POC and strip, agrees with plan Assessment & Plan Assessment/Plan (1) Rupture of membranes with clear amniotic fluid: (2) Iron deficiency: (3) UTI in : (4) Anemia affecting in third trimester: (5) Vanishing twin syndrome: (6) Supervision of high risk , antepartum: (7) Beta thalassemia minor: (8) : QUALIFIERS: Weeks of gestation: 39 weeks Qualified Code(s): Z3A.39 - 39 weeks gestation of (9) Asthma: (10) Anxiety: (11) Testing for genetic disease carrier status: Multi Select Codes Urinary/Genital Urinary/Genital CPT Codes: No Charge
[2023-05-16] VITALS (41 sets, daily range): BP systolic 100–131; BP diastolic 48–72; PULSE 95–118; RESP 16; TEMP 36.2–37.8; O2SAT 97–99
[2023-05-16] MEDS: Oxytocin 15 Units/NS 250ml 15 UNITS/250 ML IV.SOLN 83 UNITS IV (00:18)
[2023-05-16] MEDS: Oxytocin 10 UNITS/ML Vial IM (00:18)
--- NOTE | 2023-05-16 00:32 | NURSING ---
straight cath inserted by Valeria Blair CNM to aide in repair, drainage amount unknown.
--- NOTE | 2023-05-16 00:44 | OP.PCM_ITS ---
Assessment & Plan (1) Vaginal delivery: COMMENT: KW 39.3 SROM Lakesha Cortes (2) Rupture of membranes with clear amniotic fluid: (3) Iron deficiency: COMMENT: Low Iron saturation in . (4) UTI in : COMMENT: 11/30/22 started macrobid (5) Anemia affecting in third trimester: COMMENT: iron studies ordered, also is beta thalassemia carrier (6) Vanishing twin syndrome: COMMENT: possible second GS with no yolk sac or pole. 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 open to blood transfusion in if h&h cont less than 10 and symptomatic. (9) : QUALIFIERS: Weeks of gestation: 39 weeks Qualified Code(s): Z3A.39 - 39 weeks gestation of COMMENT: GBS neg,NT nl, declined NIPT & Carrier testing, nl anatomy & co nsistent JACKSON (10) Asthma: COMMENT: mild, exercise induced (11) Anxiety: COMMENT: counseling encouraged no meds. 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 Delivered the head in LONNIE presentation. The head was delivered atraumatically and no nuchal cord was identified. The anterior and posterior shoulders delivered without complication followed by the rest of the and the was placed on the maternal abdomen. Delayed cord clamping was employed for approximately 3 minutes. Cord was clamped and cut and gentle traction was applied to the cord and the placenta delivered spontaneously. Imm ediately following, it was noted to be intact with a 3 vessel cord. The perineum and vagina were inspected and noted to have no laceration a first degree periurethral laceration which was repaired with 3-0 Vicryl in the usual fashion, after placing straight catheter for repair. EBL was 100cc. Patient and tolerated delivery well. Apgars 8/9. Dr Duarte notified of vaginal delivery and orders reviewed. Physician agrees with current plan of care. Operative Information Date of Procedure: 05/16/23 Pre-Operative Diagnosis: See AP comments Post-Operative Diagnosis: Same Surgery / Procedure Performed: Spontaneous Vaginal Delivery equipment validation engineer #1: Susana Blair Type of Anesthesia: Epidural Estimated Blood Loss: 100 Time of Delivery: 00:14 Findings Presentation: Vertex Amniotic Membrane Rupture Type: Spontaneous Time of Membrane Rupture: 1602 Amniotic Fluid Description: Clear Placental Delivery Description: Spontaneous Placenta Disposition: [facility] Cord Vessel Description: 3 Vessels Cord Entanglement: None A Gender: Male (1 minute): 8 (5 minute): 9 Delayed Cord Clamping: Yes Post Vaginal Delivery Medications Given After Delivery: IV Pitocin and IM Pitocin Episiotomy Description: None Laceration: Periurethral Extnsion/lac Complication Complications: None Multi Select Codes Urinary/Genital Urinary/Genital CPT Codes: 62744 Vaginal Delivery [facility]
--- NOTE | 2023-05-16 00:53 | DCINST_ITS ---
Discharge Instructions Diet Discharge Diet: No restrictions Activity Discharge Activity: Return to Normal Activity May resume sexual activity in: 6-8 weeks Dressing / Incision Call your doctor if you observe: Fever of 101 or Higher, Coldness, Increased Pain, Numbness or Tingling, Change in Color, Inability to urinate, Inability to have a bowel movement, Using more than 1 pad per hour, Shortness of breath, Dizziness, Fainting spells, Swelling in the ankles, Chest pain, Increased palpitations (irregular heartbeat), Calf discomfort and Uncontrolled pain Follow Up Care Please Follow Up With: Susana Blair CNM When: Please call the office to schedule your follow up appointment in 6 weeks. If you had high blood pressure please call to schedule an appointment in 2 weeks. Test Results: Test results from this visit will be discussed in further detail at your follow- up appointment, if applicable. Discharge Plan Admission Admit Date/Time: 05/15/23 16:45 Attending Provider: Susana Blair Discharge Orders/Prescriptions Prescriptions: No Action PNV no.[id number] 400 mcg-35 mg- 25 mg-5 mg tablet,chewable 1 tab PO DAILY valacyclovir [Valtrex] 1 gram tablet 1,000 mg PO DAILY PRN (Reason: HSV ) Disposition Disposition (needs filled in before D/C Order can be placed): Home, Self Care
[2023-05-16] MEDS: Ibuprofen 600 MG Tablet PO ×2 (08:22→20:02)
[2023-05-16] MEDS: Senna/Docusate Sodium 1 Tablet PO (10:07)
--- NOTE | 2023-05-16 17:23 | NURSING ---
student charting reviewed and used for educational and learning purposes.
[2023-05-17] VITALS (7 sets, daily range): BP systolic 109–124; BP diastolic 57–73; PULSE 81–97; RESP 14–18; TEMP 36.1–36.7; O2SAT 97–98
[2023-05-17] MEDS: Ibuprofen 600 MG Tablet PO ×3 (04:56→21:31)
--- NOTE | 2023-05-17 08:02 | PCM.PN.OB ---
Subjective Subjective Patient doing well without complaints. Tolerating PO. Ambulating and voiding without difficulty. Feeding well. Denies chest pain, shortness of breath, calf pain/swelling, fevers, chills, lightheadedness. Objective Data Objective Data Vital Signs: Vital Signs Temp Pulse Resp BP Pulse Ox O2 Del Method 97.0 F L 82 16 122/73 H 98 Room Air 05/17/23 01:27 05/17/23 01:27 05/17/23 01:27 05/17/23 01:27 05/16/23 05:36 05/17/23 01:27 Oxygen Delivery Method Room Air Weight: 201 lb 4.513 oz Body Mass Index (BMI) 32.5 Intake & Output: Intake and Output for Last 24 Hours 05/15/23 05/16/23 05/17/23 23:59 23:59 23:59 Intake Total 1000 / 1000 1250 / 1250 Output Total 1150 / 1150 100 / 100 Balance -150 / -150 1150 / 1150 Lab / Micro Data 05/15/23 18:25 Physical Exam Const alert and oriented x3 HEENT normocephalic Eyes PERRL Neck full ROM Resp normal respiratory effort GI soft to palpation GI Narrative: FF below U Assessment & Plan (1) Vaginal delivery: COMMENT: KW 39.3 SROM Boy Sebastian PLAN: Plan s/p PPD # 1 1. routine post delivery care 2. breast feeding- support given 3. rh positive 4. rubella immune 5. home today
[2023-05-17] MEDS: Senna/Docusate Sodium 1 Tablet PO (08:49)
--- NOTE | 2023-05-17 12:23 | NURSING ---
This occupational health nursing director reviewed the documentation completed by Stephen Tillman student nurse and was present for medication administration.
--- NOTE | 2023-05-17 17:10 | NURSING ---
pt called this nurse and stated that the patients symptoms had worsened. pt is sitting straight up in bed continuing to c/o of chest feeling heavy and a little difficult to take a breath. pulse ox placed on patients finger, SpO2 98-100%. EKG leads placed, strip looks like normal sinus rhythm, HR 90-100. patient denies dizziness or lightheadedness. pt appears a little anxious. explained to patient that her VS and assessment all look normal and that sometimes heart rates run a little higher after delivery. Encouraged patient to continue to drink plenty of fluids, plan to give patient Simethicone. Will call Dr. Cordoba and let her know how the patient is feeling.
[2023-05-17] MEDS: SimETHICONE 80 MG Chewable Tablet PO (17:28)
[2023-05-18 01:14] VITALS: BP 105/74; PULSE 93; RESP 15; TEMP 36.4; O2SAT 98
--- NOTE | 2023-05-18 08:10 | PCM.PN.OB ---
Subjective Subjective Patient doing well without complaints. Tolerating PO. Ambulating and voiding without difficulty. infant feeding well. Denies chest pain, shortness of breath, calf pain/swelling, fevers, chills, lightheadedness. Objective Data Objective Data Vital Signs: Vital Signs Temp Pulse Resp BP Pulse Ox O2 Del Method 97.6 F L 93 15 105/74 98 Room Air 05/18/23 01:05/18/23 01:05/18/23 01:05/18/23 01:05/18/23 01:05/18/23 01:14 Oxygen Delivery Method Room Air Weight: 201 lb 4.513 oz Body Mass Index (BMI) 32.5 Intake & Output: Intake and Output for Last 24 Hours 05/16/23 05/17/23 05/18/23 23:59 23:59 23:59 Intake Total 1250 / 1250 Output Total 100 / 100 Balance 1150 / 1150 Lab / Micro Data 05/15/23 18:25 ROS Constitutional Constitutional: Reports systems reviewed and no addt'l complaints, except as documented Cardiovascular Cardiovascular: Reports systems reviewed and no addt'l complaints, except as documented Respiratory/Chest Respiratory/Chest: Reports systems reviewed and no addt'l complaints, except as documented Gastrointestinal Gastrointestinal: Reports systems reviewed and no addt'l complaints, except as documented Physical Exam Const alert, oriented x3 and no apparent distress HEENT Head and Scalp: atraumatic Resp normal respiratory effort GI soft to palpation and non-tender Bimanual Exam - Vag & Uterus: uterus non-tender Uterus Palpation: uterus fundus firm (below Umbilicus) Assessment & Plan (1) Vaginal delivery: COMMENT: KW 39.3 SROM Boy Sebastian PLAN: Plan s/p PPD # 2 1. routine post delivery care 2. breast feeding- support given 3. rh positive 4. rubella immune
[2023-05-18 08:35] VITALS: BP 126/70; PULSE 89; RESP 14; TEMP 36.6; O2SAT 97
[2023-05-18 08:45] VITALS: BP 126/70; PULSE 89; RESP 14; TEMP 36.6; O2SAT 97
[2023-05-18] MEDS: Senna/Docusate Sodium 1 Tablet PO (08:45)
[2023-05-18] MEDS: Ibuprofen 600 MG Tablet PO (08:46)
[2023-05-18 14:03] VITALS: BP 131/61; PULSE 90; RESP 16; TEMP 36.6; O2SAT 97
== END 2023-05-18 14:45 | disposition home or self-care (01) | DRG 807 ==
PROVIDERS: Admitting Provider Advanced Practice Midwife; Visit Provider Advanced Practice Midwife
DX: O98.32 Other infections with a predominantly sexual mode of transmission complicating childbirth (principal); Z37.0 Single live birth; O99.344 Other mental disorders complicating childbirth; A60.9 Anogenital herpesviral infection, unspecified; J45.909 Unspecified asthma, uncomplicated; F41.9 Anxiety disorder, unspecified; E61.1 Iron deficiency; D56.3 Thalassemia minor; O99.52 Diseases of the respiratory system complicating childbirth; O71.82 Other specified trauma to perineum and vulva; O99.02 Anemia complicating childbirth; O99.284 Endocrine, nutritional and metabolic diseases complicating childbirth; Z3A.39 39 weeks gestation of pregnancy
CPT/HCPCS: 59025; 59050; 84112; 85025; 86780; 86850; 86900; 86901; 99221; J7120; G0378

== ENCOUNTER → 2023-10-18 | Outpatient (CLI) | payer OTHER, MEDICAID, SELFPAY ==
[2023-10-18 14:58] LABS: Absolute Lymphocyte Count 1.62 X10^3/uL (0.83-4.51); Absolute Neutrophil Count 8.2 X10^3/uL (2.0-7.7); Basophil# 0.04 X10^3/uL; Basophil% 0.4 % (0-1); Eosinophil# 0.12 X10^3/uL; Eosinophils% 1.1 % (0-5); Hematocrit 38.9 % (37-47); Lymphocyte # 1.62 X10^3/ul (0.83-4.51); Mean Corp Hgb Conc 30.8 g/dL (32-36); Mean Corpuscular Volume 61.5 fL (81-99); Mean Platelet Vol. 10.2 fl (6.2-12.0); Monocyte# 0.82 X10^3/uL; Monocyte% 7.6 % (0-10); NRBC Flagged by Analyzer 0 % (0-5); Neutrophil # 8.18 X10^3/uL (2.7-7.7); Neutrophil % 75.5 % (47-70); Platelet Count 288 K/mm3 (150-450); RBC Distribution Width SD 36.1 fl (35.1-43.9); Red Blood Count 6.33 M/mm3 (4.2-5.4); White Blood Count 10.8 K/mm3 (4.4-11.0)
--- OUTSIDE RECORDS SUMMARY | 2023-10-18 20:19 | XMS RPT_ITS | CCD ---
Author Name Unknown Address [address] [place] [address] Organization [facility] Care Team Providers Care Astrochemist Name Role Phone CHRIS CASIANO Attending Unavailable NABILA FLANAGAN Referring Unavailabl e NO PRIMARY CARE, Primary Care Unavailable NABILA FLANAGAN Referring Unavailabl e JOSH BAKER Attending Unavailable NO PRIMARY CARE, Primary Care Unavailable SONAM SAM Attending Unavailable NABILA FLANAGAN Referring Unavailabl e NO PRIMARY CARE, Primary Care Unavailable NATHANIEL GOMES Attending Unavailable NABILA FLANAGAN Referring Unavailabl e NO PRIMARY CARE, Primary Care Unavailable NATHANIEL GOMES Attending Unavailable NABILA FLANAGAN Referring Unavailabl e NO PRIMARY CARE, Primary Care Unavailable Allergies Allergy Classification Reported Allergen(s) Allergy Type Date of Onset Reaction(s) Facility (1 source) HYDROcodone; Translations: [HYDROCODONE] Drug Allergy 8 [facility] (1 source) Pneumococcal vaccine; Translations: [PNEUMOCOCCAL VACCINE] Drug Allergy 3 [facility] (1 source) PNEUMOCOCCAL VACCINE POLYVALENT; Translations: [PNEUMOCOCCAL VACCINE POLYVALENT] Propensity to adverse reactions to drug (disorder) 7 [facility] Results Test Name Value Interpretation Reference Range Facil ity Encounters Encounter Date Encounter Type Care Provider Facility Start: 04-09-2023 End: 04-09-2023 ambulatory NATHANIEL GOMES [facility] Start: 12-28-2022 End: 12-28-2022 ambulatory CHRIS CASIANO [facility] Start: 11-20-2022 End: 11-20-2022 ambulatory NABILA FLANAGAN [facility] Start: 11-09-2022 End: 11-09-2022 ambulatory SONAM SAM [facility]ital Payers Date Payer Category Payer Unknown [id number] [id number] 1992 Unknown [id number] 2.16. [id number] 1992 Unknown [id number] 2.16. [id number] 1992 Unknown [id number] 2.16. [id number] 1992 Unknown [id number] 2.16. [id number] Medicaid [id number] Private Health Insurance [id number] Summary Purpose Family History No Family History Records FoundNo Family History Records FoundNo Family History Records Found Advance Directives No Advanced Directives Records FoundNo Advanced Directives Records FoundNo Advanced Directives Records Found Additional Source Comments INFORMATION SOURCE (unrecogn ized section and content) DATE CREATED AUTHOR AUTHOR'S ORGANIZ ATION 01/18/2020 [facility] DATE CREATED AUTHOR AUTHOR'S ORGANIZ ATION 04/10/2023 [facility] FOR RECORDS PERTAINING TO PATIENTS WHO ARE OR HAVE BEEN ENROLLED IN A CHEMICAL DEPENDENCY/SUBSTANCEABUSE PROGRAM, SOME INFORMATION MAY BE OMITTED. This clinical summary was aggregated from multiple sources. Caution should be exercised in using it in the provision of clinical care. This summary normalizes information from multiple sources, and as a consequence, information in this document may materially change the coding, format and clinical context of patient data. In addition, data may be omitted in some cases. CLINICAL DECISIONS SHOULD BE BASED ON THE PRIMARY CLINICAL RECORDS. [employer] provides no warranty or guarantee of the accuracy or completeness of information in this document.
[2023-10-21 12:07] LABS: Protein S, Free 104 % (61-136); Protein S, Total 112 % (60-150)
== END | disposition home or self-care (01) ==
LOC: PAVLAB 14:38
PROVIDERS: Referring Provider Advanced Practice Midwife; Visit Provider Advanced Practice Midwife
DX: D56.3 Thalassemia minor (principal)
CPT/HCPCS: 36415; 85025; 85305; 85306